=== PATIENT | male | born 1990 | race African-American/Black ===

== ENCOUNTER 2020-10-21 20:51 | Emergency (ER) | payer MEDICAID ==
[~2020-10-21] VITALS: Ht 188 cm; Wt 127.0 kg
[~2020-10-21 20:51] MED LIST: EYE DROPS
[2020-10-21] MEDS ORDERED: HYDROCODONE/ACETAMINOPHEN 5/325MG TABLET PO ONE (21:15)
[2020-10-21] MEDS ORDERED: TETANUS, DIPHTHERIA, PERTUSSIS VAC/PF 0.5ML (>7YR OLD) IM ONE (21:15)
[2020-10-21] MEDS ORDERED: IOHEXOL-350 100 ML BOTTLE ONE (23:24)
[2020-10-22] MEDS ORDERED: CEFAZOLIN 1000MG PREMIX 50 ML IV ONE (00:15)
[2020-10-22] MEDS ORDERED: CEPH500T MT (00:35)
[2020-10-22 01:28] VITALS: BP 148/99
[2020-10-22] MEDS ORDERED: IOHEXOL-350 100 ML BOTTLE ONE (01:37)
== END 2020-10-22 01:38 | disposition home or self-care (01) ==
LOC: ER 20:51
DX: S71.132A Puncture wound without foreign body, left thigh, initial encounter (principal); X95.9XXA Assault by unspecified firearm discharge, initial encounter; Y93.9 Activity, unspecified; Y92.9 Unspecified place or not applicable
CPT/HCPCS: 73552; 73706; 90471; 90715; 96365; 99285; J0690; Q9967

== ENCOUNTER 2024-02-21 17:47 | Emergency (ER) | payer MEDICAID ==
[~2024-02-21] VITALS: Ht 188 cm; Wt 117.9 kg
[~2024-02-21 17:47] MED LIST changes: +CEPH500T MT
[2024-02-21 17:51] VITALS: O2SAT 99
[2024-02-21 18:07] VITALS: BP 106/79; PULSE 79; RESP 18; TEMP 98.1; O2SAT 99
[2024-02-21] MEDS ORDERED: MUPI22OI2 TP (19:19)
== END 2024-02-21 20:39 | disposition left against medical advice (07) ==
LOC: ER 17:47
DX: S60.561A Insect bite (nonvenomous) of right hand, initial encounter (principal); F12.10 Cannabis abuse, uncomplicated; X58.XXXA Exposure to other specified factors, initial encounter; Y93.89 Activity, other specified; Y92.89 Other specified places as the place of occurrence of the external cause; Y99.8 Other external cause status
CPT/HCPCS: 99282